=== PATIENT | female | born 1980 | race Caucasian/White ===

== ENCOUNTER 2021-05-04 07:40 | Emergency (ER) | payer OTHER, SELFPAY ==
[2021-05-04 07:42] VITALS: BP 118/61; PULSE 76; RESP 16; TEMP 36.4; O2SAT 96; BMI 22.3
--- NOTE | 2021-05-04 07:59 | ED_ITS ---
HPI - Nausea/Vomiting/Diarrhea General Chief complaint: Nausea/Vomiting/Diarrhea Stated complaint: diarrhea Time Seen by Provider: 05/04/21 07:59 Source: patient Mode of arrival: ambulatory Limitations: no limitations History of Present Illness HPI Narrative: patient with diarrhea for 3 days. Needs a work up that she is not infectious as she works at the [employer]. There has been no Cdiff at the [employer], has not been on recent abx. MD elicited complaint: nausea, vomiting and diarrhea Onset (ago): day(s) (8) Description of diarrhea: watery Associated nausea: Yes Associated abdominal pain: Yes Related Data Allergies Allergy/AdvReac Type Severity Reaction Status Date / Time No Known Allergies Allergy Verified 05/04/21 08:02 Review of Systems Constitutional: Constitutional: Reports no additional constitutional complaints Eyes: Eyes: Reports no additional eye complaints ENT: Denies dizziness Cardiovascular: Cardiovascular: Reports no additional cardiovascular complaints Respiratory: Respiratory: Reports as per HPI Gastrointestinal: Gastrointestinal: Reports nausea Genitourinary: Genitourinary: Reports no additional female genitourinary com plaints Musculoskeletal: Musculoskeletal: Reports no additional musculoskeletal complaints Integumentary/Breasts: Skin/Breast: Denies rash Neurologic: Reports system reviewed and no additional complaints, except as documented, Denies dizziness and Denies Sensory deficit (Neuro) Psychiatric: Psychiatric: Denies anxiety [facility] Past Medical History Medical History (Updated 05/04/21 @ 09:53 by Jospeh Green MD) Asthma Social History Social History Advance Directives: No Advance Directives Information Provided: No Patient : No Physical Exam Vital Signs: Vital Signs: Last Vital Signs Temp 97.5 F 05/04/21 07:42 Pulse 76 05/04/21 07:42 Resp 16 05/04/21 07:42 BP 118/61 05/04/21 07:42 Pulse Ox 96 05/04/21 07:42 Body Mass Index 22.3 Const: General: healthy appearing Nutritional Appearance: average body habitus Orientation/consciousness: oriented to person and patient oriented x3 Limitations: no limitations HENMT: Head: Yes normal to inspection Ears: external ears normal General nose exam: Normal external nose present Mouth: Normal oral and palatal mucosa present and oropharynx normal Throat: Yes posterior oropharynx normal Eyes: General: appearance normal, both eyes and all related structures Neck: Other: supple Neck: Yes normal visual inspection Chest: Chest palpation & inspection: normal inspection of the chest Resp: Auscultation: clear to auscultation bilaterally Cardio: Jugular venous distension: no JVD Rate: regular rate Rhythm: regular rhythm Heart sounds: S1 normal heart sound present and S2 normal heart sound present GI: Inspection: Yes normal to inspection Palpation (GI): Soft to palpation, nontender and No hepatosplenomegaly present Auscultation: normal bowel sounds : General: Yes no CVA tenderness Back/Spine/Pelvis: Back: no CVA tenderness Skin: General skin exam: no rashes or lesions noted Neuro: General: oriented to person and patient oriented x3 Cranial nerves: Yes CN's II-XII intact bilaterally Motor exam (neuro): 5/5 motor strength present throughout Sensory Exam: No Sensory deficit (Neuro) Extrem: General: Yes normal to inspection Psych: Appearance: grossly normal Course Course Course Narrative: patient unable to give stool sample will send with cups and lab slips and will dc home MDM - Nausea/Vomiting/Diarrhea Lab Data Result diagrams: 05/04/21 08:24 05/04/21 08:24 Labs: Lab Results 05/04/21 05/04/21 Range/Units 08:24 08:24 WBC 6.5 (4.8-10.8) X10*3/uL RBC 4.86 (4.20-5.50) X10*6/uL Hgb 15.0 (12.0-16.0) g/dl Hct 44.0 (37-47) % MCV 90.5 (80-98) fL MCH 30.9 (27.0-33.0) pg MCHC 34.1 (31.0-35.0) g/dl RDW 12.4 (11.0-16.0) % Plt Count 251 (160-400) X10*3/uL MPV 9.5 (9.4-12.3) fL Immature Gran % (Auto) 0.2 (0.0-0.4) % Neut % (Auto) 48.9 (45-73) % Lymph % (Auto) 40.3 H (20-40) % [place] % (Auto) 6.7 (2-11) % Eos % (Auto) 3.3 (0-4) % Baso % (Auto) 0.6 (0-2) % Lymph # (Auto) 2.6 (1.2-4.9) X10*3/uL [place] # (Auto) 0.4 (0.1-1.2) X10*3/uL Eos # (Auto) 0.2 (0.0-0.4) X10*3/uL Baso # (Auto) 0.0 (0.0-0.2) X10*3/uL Abs Immat Gran (auto) 0.01 (0.00-0.03) X10*3/uL Absolute Neuts (auto) 3.2 (2.0-8.3) X10*3/uL Absolute Nucleated RBC 0.000 (0.0-0.012) X10*3/uL Nucleated RBC % (auto) 0.0 (0.0-0.2) /100WBC Sodium 138 (135-145) mmol/L Potassium 4.1 (3.3-5.1) mmol/L Chloride 108 (96-108) mmol/L Carbon Dioxide 23 (22-29) mmol/L Anion Gap 11 L (12-20) BUN 12 (9-16) mg/dL Creatinine 0.78 (0.5-1.4) mg/dL Estim Creat Clear Calc 80.2 Estimated GFR > 60 Random Glucose 91 (60-115) mg/dL Calcium 9.6 (8.4-10.2) mg/dL Discharge Plan Discharge Clinical Impression: Diarrhea Qualifiers: Diarrhea type: presumed infectious Qualified Code(s): R19.7 - Diarrhea, unspeci fied Patient Disposition: Home, Self-Care Instructions: Acute Diarrhea (ED) Additional Instructions: bring fresh stool specimen to the lab Referrals: Physician,Unknown [Primary Care Provider] - 1 week
[2021-05-04 08:32] LABS: MANUAL DIFF FLAG NO
[2021-05-04 08:35] LABS: Basophils Percent Auto 0.6 % (0-2); Eosinophils Absolute Auto 0.2 X10*3/uL (0.0-0.4); Eosinophils Percent Auto 3.3 % (0-4); Imm Gran Abs Auto 0.01 X10*3/uL (0.00-0.03); Imm Gran Pct Auto 0.2 % (0.0-0.4); Lymphocytes Absolute Auto 2.6 X10*3/uL (1.2-4.9); Lymphocytes Percent Auto 40.3 % (20-40); Mean Corpuscular HGB Conc 34.1 g/dl (31.0-35.0); Mean Corpuscular Hemoglobin 30.9 pg (27.0-33.0); Mean Corpuscular Volume 90.5 fL (80-98); Mean Platelet Volume 9.5 fL (9.4-12.3); Monocytes Absolute Auto 0.4 X10*3/uL (0.1-1.2); Monocytes Percent Auto 6.7 % (2-11); Neutrophils Absolute Auto 3.2 X10*3/uL (2.0-8.3); Neutrophils Percent Auto 48.9 % (45-73); Platelet Count 251 X10*3/uL (160-400); Red Blood Count 4.86 X10*6/uL (4.20-5.50); Red Cell Distribution Width 12.4 % (11.0-16.0); White Blood Count 6.5 X10*3/uL (4.8-10.8)
[2021-05-04 08:58] LABS: Anion Gap 11 (12-20); Blood Urea Nitrogen 12 mg/dL (9-16); Calcium 9.6 mg/dL (8.4-10.2); Carbon Dioxide 23 mmol/L (22-29); Chloride 108 mmol/L (96-108); Creatinine Clr Calc Pharmacy 80.2; Estimated Glomerular Filt Rate > 60; Glucose Random 91 mg/dL (60-115); Potassium 4.1 mmol/L (3.3-5.1); Sodium 138 mmol/L (135-145)
== END 2021-05-04 10:17 | disposition home or self-care (01) ==
PROVIDERS: Emergency Provider Emergency Medicine
DX: R19.7 Diarrhea, unspecified (principal); R11.2 Nausea with vomiting, unspecified
CPT/HCPCS: 36415; 80048; 85025; 99283

== ENCOUNTER 2021-05-05 11:03 | Outpatient (REF) | payer OTHER, SELFPAY ==
[2021-05-05 11:52] LABS: CDIFF Ag Negative (Negative); CDIFF Internal ctrl Dots and bkg OK (V); CDiff Toxin Negative (Negative)
== END 2021-05-05 11:04 | disposition home or self-care (01) ==
LOC: HO.LNP 11:03
PROVIDERS: Visit Provider Emergency Medicine
DX: R19.7 Diarrhea, unspecified (principal)
CPT/HCPCS: 87045; 87046; 87177; 87209; 87324; 87449

== ENCOUNTER 2021-07-09 12:22 | Outpatient (REF) | payer OTHER, SELFPAY ==
[2021-07-10 04:26] LABS: HBsAGNum1 0.18 S/CO (0.00-0.99); Hepatitis B Core Antibody Nonreactive (Nonreactive); Hepatitis B Surface Antigen Negative (Negative)
[2021-07-10 05:36] LABS: HBS Num2 11.09 mIU/mL (0-7.99); HBS Num3 10.51 mIU/mL (0-7.99); ~Hepatitis B Surface Antibody GRAYZONE (Nonreactive)
[2021-07-11 21:31] LABS: TS Negative Control Passed; TS Panel A 0; TS Panel B 0; TS Positive Control Passed; TSpotTB Negative (SeeBelow)
== END 2021-07-09 12:23 | disposition home or self-care (01) ==
LOC: HO.HMGCLDS 12:22
PROVIDERS: PCP Internal Medicine; Visit Provider Hospitalist
DX: Z02.0 Encounter for examination for admission to educational institution (principal); Z01.84 Encounter for antibody response examination; Z11.1 Encounter for screening for respiratory tuberculosis
CPT/HCPCS: 36415; 86481; 86704; 86706; 86735; 86762; 86765; 86787; 87340

== ENCOUNTER 2023-02-20 08:33 | Outpatient (REF) | payer OTHER, SELFPAY ==
[2023-02-20 09:03] LABS: COVID-19 Test Negative (Negative); IDNOW Serial# 08D9AD1C
== END 2023-02-20 08:34 | disposition home or self-care (01) ==
LOC: HO.LAB 08:33
PROVIDERS: Visit Provider Internal Medicine
DX: Z20.822 Contact with and (suspected) exposure to COVID-19 (principal)
CPT/HCPCS: 87635

== ENCOUNTER 2023-02-21 10:19 | Outpatient (REF) | payer OTHER, SELFPAY ==
[2023-02-24 12:49] LABS: TS Negative Control Passed; TS Panel A 0; TS Panel B 0; TS Positive Control Passed; TSpotTB Negative (Negative)
== END 2023-02-21 10:20 | disposition home or self-care (01) ==
LOC: HO.HMGCLDS 10:19
PROVIDERS: PCP Internal Medicine; Visit Provider Internal Medicine
DX: Z02.0 Encounter for examination for admission to educational institution (principal)
CPT/HCPCS: 36415; 86481

== ENCOUNTER → 2023-06-23 08:20 | Outpatient (BNVA) | payer SELFPAY | PROVIDERS: PCP Internal Medicine | DX: Z04.9 Encounter for examination and observation for unspecified reason (principal) ==

== ENCOUNTER 2023-07-22 07:54 | Outpatient (AMB) | payer OTHER, SELFPAY ==
--- NOTE | 2023-07-22 08:03 | MHC.OFFVIS ---
Intake Vital Signs 07/22/23 08:07 Height 5 ft 5 in Weight 123 lb BMI 20.5 BP 93/60 Blood Pressure Location Lt brachial Position Sitting Pulse 71 Intake Visit Reasons: Colonoscopy Screening Intake Note: Patient new consult for 1st pre Colonoscopy screening. Patient cc: Constipation, between soft and hard BM, and hemorrhoids are controlled. Denies any other GI issues. 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 She is referred by Alanna Strauss of [facility] primary care. PMX Asthma Anxiety/depression Family history of colon cancer * SURGICAL HISTORY Canal [place] teeth removed * ALLERGIES Sulfa - skin red * Stealth10 LABS: No labs since 2020 TODAY'S VISIT This will be her 1st colonoscopy She has some CIC vs softer and hemorrhoids and she has use fiber in the past but these swings in her bowels do not bother her. No upper GI problems. She does not have much experience with anesthesia or sedation but tolerated it well when she had her wisdom teeth removed. Her asthma is controlled and she denies any cardiac problems. Her BP tends to run low in 90's systolic w/o sx. No ID problems. Her mother has polyps and her maternal grandmother and maternal uncle had CRC, uncle passed around age 50. [facility] Medical History (Updated 07/22/23 @ 09:26 by CLAIRE Oakes) Anxiety and depression Family history of colon cancer Mild intermittent asthma Surgical History (Updated 07/22/23 @ 09:26 by CLAIRE Oakes) H/O wisdom tooth extraction Family History Father Substance use disorder Maternal Aunt Mental health disorder Maternal Grandmother Colon cancer Social History Housing: House Patient Tobacco Use Status: Former Tobacco user Years Smoked: 13 yrs e-Cigarette/Vaping Use: Never Used service: No Current occupational status: previously employed Cognitive needs: No Hearing needs: No Vision needs: No Review of Systems Const Denies fatigue, Denies fever(s), Denies night sweats, Denies poor appetite and Denies weight loss ENT Reports Normal hearing present, Denies dental pain, Denies dysphagia, Denies hearing loss, Denies mouth pain, Denies odynophagia, Denies throat swelling, Denies tongue swelling and Reports other (Dentition adequate) Card Reports no additional complaints Resp Reports no additional complaints GI Denies abdominal pain, Denies melena, Denies bloating, Denies hematochezia, Reports constipation, Denies GI cramping, Denies dysphagia, Denies excessive flatus, Denies early satiety, Denies heartburn, Denies diarrhea, Denies nausea, Denies odynophagia, Denies vomiting and Denies hematemesis Skin/Breast Denies pruritus, Denies lesions, Denies rash and Denies jaundice Neuro Reports Normal hearing present and Denies Abnormal speech present Endo Denies fatigue Aller/Immun Denies throat swelling and Denies tongue swelling Physical Exam Vital Signs: Last Vital Signs Pulse 71 07/22/23 08:07 BP 93/60 07/22/23 08:07 BMI result Body Mass Index 20.5 Const General: cooperative, no acute distress, well developed and well groomed Nutritional Appearance: well nourished and thin Orientation/consciousness: oriented to person, oriented to place and oriented to time Limitations: No language barrier HEENT Head: Yes normocephalic and Yes atraumatic Eyes General: appearance normal, both eyes and all related structures Pupils: Equal, round and reactive pupils present Neck Neck: Yes normal visual inspection and Yes no lymphadenopathy Thyroid: Thyroid normal Resp Effort & Inspection: normal respiratory effort and able to speak in complete sentences Auscultation: clear to auscultation bilaterally Cardio Rate: regular rate Rhythm: regular rhythm Heart sounds: Normal, physiologic split S2 sound present Peripheral pulses: radial pulses present and posterior tibial pulses present GI Inspection: No distended and No Abdominal panniculus present Palpation (GI): Soft to palpation, nontender, no guarding, not rigid and No hepatosplenomegaly present Percussion: Yes normal to percussion Auscultation: normal bowel sounds Rectal Exam - Female: deferred Skin General skin exam: no rashes or lesions noted, turgor normal, skin not dry, no jaundice, No spider nevi and no striae Rashes: no rashes Nails: normal Neuro General: oriented to person, oriented to place and oriented to time Cranial nerves: Yes Equal, round and reactive pupils present and Yes Normal hearing present Speech: No Abnormal speech present Extrem General: Yes normal to inspection, No clubbing, No cyanosis and No edema Psych Appearance: grossly normal and well kempt Mental Status: mental status grossly normal Speech and movement: Normal speech and movement present Affect: normal affect Attitude: cooperative Thought process: Normal thought process present and not confabulating Thought content: Normal thought content present Insight: Good insight present (Psych) Judgement: Good judgement present (Psych) Assessment & Plan Assessment & Plan (1) Pre-op examination: Code(s): Z01.818 - Encounter for other preprocedural examination Plan: This will be her 1st colonoscopy She has some CIC vs softer and hemorrhoids and she has use fiber in the past but these swings in her bowels do not bother her. No upper GI problems. She does not have much experience with anesthesia or sedation but tolerated it well when she had her wisdom teeth removed. Her asthma is controlled and she denies any cardiac problems. Her BP tends to run low in 90's systolic w/o sx. No ID problems. Her mother has polyps and her maternal grandmother and maternal uncle had CRC, uncle passed around age 50. 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 (2) Family history of colon cancer: Code(s): Z80.0 - Family history of malignant neoplasm of digestive organs (3) Chronic asymptomatic hypotension: Code(s): I95.89 - Other hypotension Orders: Orders Comprehensive Met. Panel Today Z01.818 - Encounter for other preprocedural examination, Z80.0 - Family history of malignant neoplasm of digestive organs Complete Blood Count Auto Diff Today Z01.818 - Encounter for other preprocedural examination, Z80.0 - Family history of malignant neoplasm of digestive organs Colonoscopy - GI Use Only Today Z01.818 - Encounter for other preprocedural examination, Z80.0 - Family history of malignant neoplasm of digestive organs Medications: New sod sulf-pot chloride-mag sulf 1.479-0.188- 0.225 gram (Sutab) PO PER PKG DIR 24 tabs 0RF Coding Level of Care Code New Pt Level 3 (88778) Diagnoses Pre-op examination Z01.818 Family history of colon cancer Z80.0 Chronic asymptomatic hypotension I95.89
[2023-07-22 08:07] VITALS: BP 93/60; PULSE 71; BMI 20.5
== END 2023-07-22 08:46 | disposition home or self-care (01) ==
PROVIDERS: PCP Internal Medicine; Visit Provider Nurse Practitioner
DX: Z01.818 Encounter for other preprocedural examination (principal); Z80.0 Family history of malignant neoplasm of digestive organs; I95.89 Other hypotension
CPT/HCPCS: 99203

== ENCOUNTER → 2023-07-22 07:54 | Outpatient (BNVA) | payer SELFPAY | PROVIDERS: PCP Internal Medicine; Visit Provider Nurse Practitioner ==

== ENCOUNTER 2023-09-27 12:54 | Outpatient (REF) | payer OTHER, SELFPAY ==
[2023-09-28 08:22] LABS: HBS Num1 > 1000.00 mIU/mL (0-7.99); ~Hepatitis B Surface Antibody REACTIVE (Nonreactive)
== END 2023-09-27 12:55 | disposition home or self-care (01) ==
LOC: HO.HMGCLDS 12:54
PROVIDERS: PCP Internal Medicine; Visit Provider Internal Medicine
DX: Z01.84 Encounter for antibody response examination (principal)
CPT/HCPCS: 36415; 86706

== ENCOUNTER 2023-11-24 07:55 | Day surgery (SDC) | payer OTHER, SELFPAY ==
[2023-11-22 13:50] VITALS: BMI 20.5
[2023-11-24 08:01] VITALS: BP 104/65; PULSE 74; RESP 18; TEMP 36.6; O2SAT 98
[2023-11-24 08:04] VITALS: BMI 21.7
[2023-11-24 08:19] LABS: UPreg QC Valid YES; Urine Pregnancy NEGATIVE (NEGATIVE)
[2023-11-24] MEDS: Lactated Ringers 1,000 ML 50 ML IVCONT (08:26)
--- NOTE | 2023-11-24 08:36 | HO.ANESPROP2 ---
HPI - Anesthesia Eval Consult details Narrative: colonoscopy PMF Active Problems Active Problems: All Active Problems (Updated 07/22/23 @ 09:26 by CLAIRE Oakes) Chronic asymptomatic hypotension (Acute) Pre-op examination (Acute) Family history of colon cancer (Acute) School physical exam (Acute) Mild intermittent asthma (Acute) Past Medical History Medical History (Updated 07/22/23 @ 09:26 by CLAIRE Oakes) Family history of colon cancer Mild intermittent asthma Anxiety and depression Family History Family History Father Substance use disorder Maternal Aunt Mental health disorder Maternal Grandmother Colon cancer Family history of problems with anesthesia: No Surgical History Surgical History (Updated 07/22/23 @ 09:26 by CLAIRE Oakes) H/O wisdom tooth extraction History of Problems with Anesthesia: No Social History Social History Housing: House Patient Tobacco Use Status: Former Tobacco user Years Smoked: 13 yrs e-Cigarette/Vaping Use: Never Used Are you DNR?: No Advance Directives: No Advance Directives Information Provided: Yes Recently lost weight without trying: No Patient : No service: No Current occupational status: previously employed Cognitive needs: No Hearing needs: No Vision needs: No Meds Allergies Allergy/AdvReac Type Severity Reaction Status Date / Time sulfamethoxazole AdvReac Hives Verified 07/22/23 08:02 [From Bactrim] Active Medications: Current Medications Lactated Ringer's (Lr) 1,000 mls @ 50 mls/hr IVCONT .Q20H EDDIE Last Admin: 11/24/23 08:26 Dose: 50 mls/hr Home Medications Medication Instructions Recorded Confirmed Last Taken Type levonorgestrel 20.4 mcg/24 hrs (8 intrauterine 11/11/21 05/30/23 Unknown History yrs) 52 mg intrauterine device (Liletta) Exam Height,Weight and Vital Signs: Height 5 ft 5 in Weight 59.229 kg Last Vital Signs Temp 98 F 11/24/23 08:01 Pulse 74 11/24/23 08:01 Resp 18 11/24/23 08:01 BP 104/65 11/24/23 08:01 Pulse Ox 98 11/24/23 08:01 O2 Del Method Room Air 11/24/23 08:01 Pertinent Lab Results Pertinent Lab Results: Laboratory Tests 11/24/23 08:00 Urine Test NEGATIVE Airway Mallampati Class: II TM Dist: >3cm Neck ROM: Limited Heart: rrr Lungs: cta Assessment and Plan Assessment Anesthesia Assessment: Anesthesia Plan Discussed Final Anesthetic Review Family History of Problems with Anesthesia: No History of Problems with Anesthesia: No ASA Class: II Final Preanesthetic Review: No Changes in Pt Med Stat, Meds/Allgs Chart Reviewed, Consent Obtained/Reviewed and Anes Risks/Benef Reviewed Patient Risk: Low Procedure Risk: Low Anesthetic Plan Anesthetic Plan: MAC: Disposition: Standard PACU
--- NOTE | 2023-11-24 09:36 | MHC.SHP ---
Pre-Procedural Eval Section A Date of Service: 11/24/23 Section B Chief Complaint: Family history of malignant neoplasm of digestive Relevant Family History (Specify if Yes): Yes Relevant Social History: None Present Medications: see Short Stay Collaborative assessment Medical History: Significant History (Family history of colon cancer Mild intermittent asthma Anxiety and depression) History of Previous Operations: Relevant previous surgery/procedure and date(s) (H/O wisdom tooth extraction) Allergies: Allergies Allergy/AdvReac Type Severity Reaction Status Date / Time sulfamethoxazole AdvReac Hives Verified 07/22/23 08:02 [From Bactrim] Review of Systems Sugical H&P ROS: Negative: Constitution, Cardiovascular, Respiratory, Neurological, Psychiatric, Hem-Onc, Allergic/Immunologic, Gastrointestinal, Genitourinary, Musculoskeletal, Integumentary, Endocrine and Eyes/Ears/Nose/Throat Exam Surgical H&P Exam: Normal: HEENT, Normal: Heart, Normal: Lungs, Normal: Extremities, Normal: Abdomen, Normal: Skin and Normal: Neurological Plan Diagnosis/Plan: Unchanged I have reviewed the history and physical and performed a pertinent physical examination on my patient. No changes have occurred unless specified. Time Spent With Patient Time: Total time managing care of this patient today ____ minutes.
--- NOTE | 2023-11-24 10:09 | W.PM.OPN ---
Operative Note Operative Note Date of Service: 11/24/23 Narrative: Operative Information Procedure Description: Colonoscopy Indication: screening, FH of CRC Anesthesia: MAC COLONOSCOPY Instrument: Olympus variable stiffness pediatric scope 190L Colonoscopy Monitoring: Vital signs and clinical assessment, continuous EKG monitoring, Pulse oximetry, Carbon Dioxide monitoring and blood pressure monitoring were done throughout the procedure. Colon withdrawal time was 12 minutes. Procedure: The patient was placed in the left lateral decubitis position and pre-procedure medications were administered. After a digital rectal examination of the ano-rectum, the video colonoscope was inserted into the rectum and advanced through the colon to the cecum/TI. The colonoscope was slowly withdrawn in a retrograde panoramic fashion and the colon mucosa was carefully examined including a retroflexed view of the rectum. Findings and interventions are described below. Procedure Difficulty: easy Findings: Terminal Ileum-normal Cecum:normal Ascending Colon: normal Transverse Colon -normal Descending Colon: 6-8 mm sessile polyp removed with cold snare Sigmoid Colon: normal Rectum: Retroflexion with small internal hemorrhoids, grade I - 10-11 mm sessile polyp removed with cold snare Anorectum - normal Colon preparation: [place] Bowel Preparation Scale Right colon; 2 Transverse colon: 1-2 Left colon; 1- (0 = Unprepared colon segment with mucosa not seen due to solid stool that cannot be cleared. 1 = Portion of mucosa of the colon segment seen, but other areas of the colon segment not well seen due to staining, residual stool and/or opaque liquid. 2 = Minor amount of residual staining, small fragments of stool and/or opaque liquid, but mucosa of colon segment seen well. 3 = Entire mucosa of colon segment seen well with no residual staining, small fragments of stool or opaque liquid) Impression and Post Procedure Diagnosis: polyps internal hemorrhoids Plan: High fiber diet leaflet Avoid straining at stool, epsom salts and sitz bath, anusol supps or cream Repeat Colonoscopy in 6-12 months due to prep or earlier if clinically indicated--maybe 2 d of clears next time Above findings were reviewed with the patient and relevant handouts were provided if indicated.
[2023-11-24 10:43] VITALS: BP 84/46; PULSE 63; RESP 16; TEMP 36.6; O2SAT 98
[2023-11-24 10:58] VITALS: BP 96/51; PULSE 65; RESP 16; O2SAT 99
[2023-11-24 11:05] VITALS: BP 94/52; PULSE 66; RESP 16; O2SAT 99
[2023-11-24 11:13] VITALS: BP 97/51; PULSE 58; RESP 16; O2SAT 99
[2023-11-24 11:25] VITALS: BP 98/53; PULSE 61; RESP 16; TEMP 36.6; O2SAT 99
== END 2023-11-24 11:37 | disposition home or self-care (01) ==
PROVIDERS: Anesthesiology; PCP Internal Medicine; Visit Provider Internal Medicine Gastroenterology
PROC: 0DJD8ZZ Inspection of Lower Intestinal Tract, Via Natural or Artificial Opening Endoscopic (ICD-10-PCS; CPT 45378; principal; 2023-11-24 11:20)
DX: Z12.11 Encounter for screening for malignant neoplasm of colon (principal); D12.4 Benign neoplasm of descending colon; D12.8 Benign neoplasm of rectum; K57.30 Diverticulosis of large intestine without perforation or abscess without bleeding; K64.0 First degree hemorrhoids; Z80.0 Family history of malignant neoplasm of digestive organs; I95.89 Other hypotension; J45.20 Mild intermittent asthma, uncomplicated; Z87.891 Personal history of nicotine dependence
CPT/HCPCS: 45385; 81025; 88305; J2704

== ENCOUNTER → 2023-11-24 07:55 | Outpatient (BNV) | payer OTHER, SELFPAY | PROVIDERS: PCP Internal Medicine; Visit Provider Internal Medicine Gastroenterology | DX: Z12.11 Encounter for screening for malignant neoplasm of colon (principal); K63.5 Polyp of colon; K64.8 Other hemorrhoids; Z80.0 Family history of malignant neoplasm of digestive organs | CPT/HCPCS: 45385 ==

== ENCOUNTER 2024-01-08 10:39 | Emergency (ER) | payer OTHER, SELFPAY ==
--- NOTE | ~2024-01-08 | CT_ITS ---
EXAMINATION: CT HEAD WITHOUT CONTRAST CT CERVICAL SPINE WITHOUT CONTRAST CLINICAL INFORMATION: Head injury and pain. COMPARISON: None TECHNIQUE: CT of the head and cervical spine were performed without intravenous contrast. Multiplanar reformats were rendered and reviewed. This CT examination was performed using dose optimization techniques as appropriate, variously including the following: *Automated exposure control *Adjustment of mA and/or kV according to patient size (this includes techniques or standardized protocols for targeted exams where dose is matched to indication/reason for exam; i.e. extremities or head) *Use of iterative reconstruction technique DLP: 623 mGy-cm. FINDINGS: CT head: There is no intracranial hemorrhage, extra-axial collection, mass effect, or territorial infarction. The ventricles are normal in size without hydrocephalus. The calvarium is intact without fracture. The visualized paranasal sinuses and mastoid air cells are clear. CT cervical spine: The cervical vertebral bodies demonstrate normal heights and alignment. No fracture is seen. There is moderate to severe disc height loss at C6-C7. There is mild disc height loss at C5-C6. Anterior endplate osteophytes and disc osteophyte complexes are seen at C5-C6 and C6-C7. Facet joints are essentially normal. Uncovertebral hypertrophy and disc osteophyte complex results in moderate left neural foraminal stenosis at C5-C6 and moderate to severe narrowing bilaterally at C6-C7. There is union of the anterior and posterior arch of C1. The lung apices are clear. The cervical soft tissues are within normal limits. CT/CT cervical spine wo IV con IMPRESSION: CT HEAD: No acute intracranial abnormality. CT CERVICAL SPINE: No cervical spine fracture or traumatic malalignment. Multilevel degenerative spondylotic changes.
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
[2024-01-08 11:01] VITALS: BP 104/59; PULSE 71; RESP 18; TEMP 37.1; O2SAT 98; BMI 20.6
[2024-01-08] MEDS: Cyclobenzaprine HCl 5 MG TABLET PO (11:14)
== END 2024-01-08 11:51 | disposition home or self-care (01) ==
PROVIDERS: Emergency Provider Emergency Medicine Emergency Medical Services; PCP Internal Medicine
DX: S10.91XA Abrasion of unspecified part of neck, initial encounter (principal); M54.2 Cervicalgia; R51.9 Headache, unspecified; Y04.2XXA Assault by strike against or bumped into by another person, initial encounter; Y93.9 Activity, unspecified; Y92.9 Unspecified place or not applicable; Y99.0 Civilian activity done for income or pay
CPT/HCPCS: 70450; 72125; 99284

== ENCOUNTER 2024-04-26 09:01 | Outpatient (AMB) | payer OTHER, SELFPAY ==
[2024-04-26 09:04] VITALS: BP 90/58; PULSE 76; O2SAT 96; BMI 21.1
--- NOTE | 2024-04-26 09:04 | MHC.PC.OV ---
Vital Signs 04/26/24 09:04 Height 5 ft 4 in Weight 123 lb BMI 21.1 BP 90/58 L Blood Pressure Location Rt brachial Position Sitting Pulse 76 Pulse Source Pulse Oximeter Pulse Oximetry (%) 96 Oxygen Delivery Method Room Air Intake Visit Reasons: asthma Intake Note: Pt is here today c/o asthma acting up, coughing up phelgm x2wks Allergies sulfamethoxazole [From Bactrim] Adverse Reaction (Verified 04/26/24 09:47) Hives Medication List - Last Reconciled 04/26/24 by Aalnna Strauss MD albuterol sulfate 90 mcg/actuation 2 puffs inhalation Q6H PRN fluticasone propion-salmeterol 500-50 mcg/dose 1 inh inhalation Q12H montelukast 10 mg PO DAILY Tobacco use date assessed: 04/26/24 Dental Screening Dental Screen Date: 05/30/23 HPI asthma HPI Details 44-year-old lady with mild intermittent asthma, has been out of her inhalers for the last 2 weeks, presents today complaining of persistent cough with wheezing accompanied by chest congestion and postnasal drainage which has been present now for the last 10 days denies any accompanying fever, does get a little bit short of breath on moderate exertion. [facility] Medical History (Updated 04/26/24 @ 09:59 by Alanna Strauss MD) Asthmatic bronchitis Family history of colon cancer Mild intermittent asthma Anxiety and depression Surgical History H/O wisdom tooth extraction Family History Father Substance use disorder Maternal Aunt Mental health disorder Maternal Grandmother Colon cancer Social History Housing: House Patient Tobacco Use Status: Former Tobacco user Years Smoked: 13 yrs e-Cigarette/Vaping Use: Never Used service: No Current occupational status: previously employed Cognitive needs: No Hearing needs: No Vision needs: No Questionnaire Thrive Questionnaire Date Thrive assessed: 05/30/23 JAMES-7 AMB Questionnaire JAMES-7 Date JAMES - 7 assessed: 05/30/23 Source: Developed by Drs. Harley Montanez, ShannonJe Gould and colleagues, with an educational markie from [employer]. Review of Systems Const Reports as per HPI ENT Reports no additional complaints Card Reports as per HPI Resp Reports as per HPI and Reports no additional complaints GI Reports no additional complaints Physical exam (Primary Care) Vital Signs: Last Vital Signs Pulse 76 04/26/24 09:04 BP 90/58 L 04/26/24 09:04 Pulse Ox 96 04/26/24 09:04 Oxygen Delivery Method Room Air 04/26/24 09:04 BMI result Body Mass Index 21.1 Tobacco/Smoking Status: Tobacco use Status Tobacco use date assessed 04/26/24 04/26/24 09:10 Patient Tobacco Use Status Former Tobacco user 04/26/24 09:10 e-Cigarette/Vaping Use Never Used 04/26/24 09:10 Thrive Assessment: Date of Thrive Assessment Date Thrive assessed 05/30/23 04/26/24 09:10 Const Other: Alert oriented x3, no acute distress noted ambulatory normal HENMT Ears: external ears normal, TM's normal bilaterally and EAC's normal General nose exam: Normal external nose present and No nasal discharge present Face and sinus: Yes sinuses nontender and Yes face symmetric Mouth: Normal oral and palatal mucosa present, oropharynx normal and moist mucous membranes Neck Other: Supple with no lymphadenopathy thyroid gland nonpalpable Resp Auscultation: wheezes scattered wheezes Assessment and Plan Assessment & Plan (1) Screening examination for pulmonary tuberculosis: Code(s): Z11.1 - Encounter for screening for respiratory tuberculosis Plan: T spot ordered, needs for school (2) Mild intermittent asthma: Code(s): J45.20 - Mild intermittent asthma, uncomplicated Qualifiers: Asthma complication type: with acute exacerbation Qualified Code(s): J45.21 - Mild intermittent asthma with (acute) exacerbation Plan: Prescription refill sent for albuterol inhaler, montelukast and fluticasone propionate-salmeterol 500-50 mcg/dose up-to-date with her Prevnar 20. (3) Asthmatic bronchitis: Code(s): J45.909 - Unspecified asthma, uncomplicated Qualifiers: Asthma severity: mild Asthma complication type: with acute exacerbation Asthma persistence: intermittent Qualified Code(s): J45.21 - Mild intermittent asthma with (acute) exacerbation Plan: Prescription sent for Augmentin 875-1251 tablet every 12 hours for 10 days. Orders: Orders T Spot TB Today Z11.1 - Encounter for screening for respiratory tuberculosis Medications: New amoxicillin-pot clavulanate 875-125 mg 1 tab PO Q12H 20 tabs 0RF Refilled albuterol sulfate 90 mcg/actuation 2 puffs inhalation Q6H PRN 8.5 grams 3RF shortness of breath or wheezing J45.20 - Mild intermittent asthma, uncomplicated montelukast 10 mg PO DAILY 90 tabs 3RF J45.20 - Mild intermittent asthma, uncomplicated fluticasone propion-salmeterol 500-50 mcg/dose 1 inh inhalation Q12H 60 ea 6RF J45.20 - Mild intermittent asthma, uncomplicated Coding Level of Care Code Est Pt Level 4 (80653) Complex EM visit Add On G2211 Diagnoses Screening examination for pulmonary tuberculosis Z11.1 Mild intermittent asthma with acute exacerbation J45.21 Asthma complication type: with acute exacerbation Mild intermittent asthmatic bronchitis with acute exacerbation J45.21 Asthma severity: mild Asthma complication type: with acute exacerbation Asthma persistence: intermittent
== END 2024-04-26 10:43 | disposition home or self-care (01) ==
PROVIDERS: PCP Internal Medicine; Visit Provider Internal Medicine
DX: Z11.1 Encounter for screening for respiratory tuberculosis (principal); J45.21 Mild intermittent asthma with (acute) exacerbation
CPT/HCPCS: 99214; G2211

== ENCOUNTER 2024-05-29 15:15 | Outpatient (REF) | payer OTHER, SELFPAY ==
[2024-05-29 17:05] LABS: Alanine Aminotransferase 17 U/L (0-31); Anion Gap 12 (12-20); Aspartate Amino Transferase 14 U/L (5-31); Blood Urea Nitrogen 13 mg/dL (9-16); Calcium 9.8 mg/dL (8.4-10.2); Carbon Dioxide 26 mmol/L (22-29); Chloride 105 mmol/L (96-108); Cholesterol 172 mg/dL (<200); Estimated Glomerular Filt Rate > 60; Glucose Fasting 124 mg/dL (60-99); HDL Cholesterol 46 mg/dL (>40); LDL Cholesterol Calculated 78 mg/dL (<100); Potassium 4.2 mmol/L (3.3-5.1); Sodium 139 mmol/L (135-145); Triglycerides 242 mg/dL (<150)
== END 2024-05-29 15:16 | disposition home or self-care (01) ==
LOC: HO.HMGCLDS 15:15
PROVIDERS: PCP Internal Medicine; Visit Provider Internal Medicine
DX: J45.21 Mild intermittent asthma with (acute) exacerbation (principal); Z13.220 Encounter for screening for lipoid disorders; Z13.1 Encounter for screening for diabetes mellitus
CPT/HCPCS: 36415; 80048; 80061; 82306; 84450; 84460

== ENCOUNTER 2024-06-04 10:53 | Outpatient (AMB) | payer OTHER, SELFPAY ==
[2024-06-04 10:56] VITALS: BP 94/60; PULSE 79; O2SAT 96; BMI 20.6
--- NOTE | 2024-06-04 10:56 | A.OFFPC_ITS ---
Vital Signs 06/04/24 10:56 Height 5 ft 4 in Weight 120 lb BMI 20.6 BP 94/60 Blood Pressure Location Rt brachial Position Sitting Pulse 79 Pulse Source Pulse Oximeter Pulse Oximetry (%) 96 Oxygen Delivery Method Room Air Intake Visit Reasons: PE Intake Note: Pt is here today for her PE/FMLA paperwork Allergies sulfamethoxazole [From Bactrim] Adverse Reaction (Verified 06/04/24 11:19) Hives Medication List - Last Reconciled 06/04/24 by Alanna Strauss MD albuterol sulfate 90 mcg/actuation 2 puffs inhalation Q6H PRN fluticasone propion-salmeterol 500-50 mcg/dose 1 inh inhalation Q12H montelukast 10 mg PO DAILY Tobacco use date assessed: 06/04/24 Dental Screening Dental Screen Date: 06/04/24 Did you have a dental visit in the last 12 months?: Yes Did you have a dental problem in the last 6 months where you did not have access to dental care?: No Was dental information given to patient?: Patient has dentist HPI PE HPI Details 44-year-old lady here today requesting t o have her FMLA application completed. Patient has been having a lot of anxiety and low mood for the last several weeks, has had several family losses and a P falls in the last few months. Requesting to be on leave from May 28 to2023 for mental health reasons. Currently being seen by therapist. Will start her today on sertraline 50 mg per tablet, initially start taking half a tablet for the 1st week and then increase dose to 50 mg daily as needed. [facility] Medical History (Updated 06/11/24 @ 03:44 by Alanna Strauss MD) Anxiety and depression Asthmatic bronchitis Family history of colon cancer Mild intermittent asthma Surgical History H/O wisdom tooth extraction Family History Father Substance use disorder Maternal Aunt Mental health disorder Maternal Grandmother Colon cancer Social History Housing: House Patient Tobacco Use Status: Former Tobacco user Years Smoked: 13 yrs e-Cigarette/Vaping Use: Never Used service: No Current occupational status: previously employed Cognitive needs: No Hearing needs: No Vision needs: No Questionnaire PHQ-9 Over the last 2 weeks, how often have you been bothered by any of the following problems? 1. Little interest or pleasure in doing things: several days 2. Feeling down, depressed, or hopeless: several days 3. Trouble falling or staying asleep, or sleeping too much: not at all 4. Feeling tired or having little energy: several days 5. Poor appetite or overeating: several days 6. Feeling bad about yourself - or that you are a failure or have let yourself or your family down: several days 7. Trouble concentrating on things, such as reading the newspaper or watching television: several days 8. Moving or speaking so slowly that other people could have noticed. Or the opposite - being so fidgety or restless that you have been moving around a lot more than usual: not at all 9. Thoughts that you would be better off or of hurting yourself in some way: not at all Total score: 6 Depression Screening Interpretation: Positive Depression Screening Done: Yes 69434 - PHQ-9 Billing: Yes Source: Developed by Drs. Harley Montanez, Shannon Yancey, Je Pierre and colleagues, with an educational markie from [employer]. Thrive Questionnaire Date Thrive assessed: 06/04/24 I am a: Patient What is your living situation today?: I have a steady place to live Within the past 12 months, did the food you bought not last and you didn't have the money to get more?: Never true Within the past 12 months, did you worry whether your food would run out before you got money to buy more?: Never true Do you have trouble paying for medicines?: No Do you have trouble getting transportation to medical appointments?: No Do you have trouble paying your heating and electricity bill?: No Do you have trouble taking care of your child, family member or friend?: No Do you have trouble with day-to-day activities such as bathing, preparing meals, shopping, managing finances, etc.?: No Are you currently unemployed and looking for a job?: No Are you interested in more education?: No THRIVE Score: 0 AUDIT C Alcohol Use Questionnaire (AUDIT-C) 1. How often do you have a drink containing alcohol?: Monthly or less 2. How many drinks containing alcohol do you have on a typical day when you are drinking?: 1 or 2 3. How often do you have six or more drinks on one occasion?: Never Total Score: 1 JAMES-7 AMB Questionnaire JAMES-7 Date JAMES - 7 assessed: 06/04/24 Feeling nervous, anxious, or on edge: 3 = Nearly every day Not being able to stop or control worryin = Nearly every day Worrying too much about different things: 1 = Several days Trouble relaxin = More than half the days Being so restless that it is hard to sit still: 2 = More than half the days Becoming easily annoyed or irritable: 1 = Several days Feeling afraid as if something awful might happen: 1 = Several days Total JAMES-7 score (0-4 normal; 5-9 mild; 10-14 moderate; 15-21 severe): 13 Source: Developed by Drs. Harley Montanez, Shannon Yancey, Je Pierre and colleagues, with an educational markie from [employer]. JAMES-7 Assessment Billing JAMES-7 Assessment Tool: JAMES-7 Assessment 60975 Review of Systems Const Reports as per HPI, Reports difficulty sleeping, Reports fatigue and Reports lethargy ENT Reports no additional complaints Card Denies chest pain, Denies rapid heart rate and Denies dyspnea Resp Denies cough and Denies dyspnea GI Denies abdominal pain, Denies change in bowel habits, Denies change in stool character and Denies heartburn Musc Reports no additional complaints Psych Reports as per HPI Endo Reports fatigue Physical exam (Primary Care) Vital Signs: Last Vital Signs Pulse 79 06/04/24 10:56 BP 94/60 06/04/24 10:56 Pulse Ox 96 06/04/24 10:56 Oxygen Delivery Method Room Air 06/04/24 10:56 BMI result Body Mass Index 20.6 Tobacco/Smoking Status: Tobacco use Status Tobacco use date assessed 06/04/24 06/04/24 11:05 Patient Tobacco Use Status Former Tobacco user 06/04/24 10:56 e-Cigarette/Vaping Use Never Used 06/04/24 10:56 PHQ-9: PHQ-9 Score PHQ-9: Total score 6 06/04/24 17:21 Depression Screening Interpretation: Positive Thrive Assessment: Date of Thrive Assessment Date Thrive assessed 06/04/24 06/04/24 11:25 Const Other: Alert oriented x3, no acute distress noted ambulatory normal Orientation/consciousness: patient oriented x3 HENMT Ears: external ears normal General nose exam: Normal external nose present Face and sinus: Yes face symmetric Mouth: Normal oral and palatal mucosa present, oropharynx normal and moist mucous membranes Neck Other: Supple with no lymphadenopathy thyroid gland nonpalpable Resp Auscultation: clear to auscultation bilaterally Cardio Other: S1-S2 present regular rate and rhythm GI Palpation (GI): Soft to palpation, nontender, no guarding and no masses Auscultation: normal bowel sounds Neuro General: patient oriented x3, tone normal, moves all extremities, Normal light touch and pain sensation and no focal motor deficits Psych Appearance: grossly normal and well kempt Mental Status: mental status grossly normal Speech and movement: Normal speech and movement present Affect: Sad affect present Thought process: Normal thought process present Thought content: Normal thought content present Assessment and Plan Assessment & Plan (1) Anxiety and depression: Code(s): F41.9 - Anxiety disorder, unspecified; F32.A - Depression, unspecified Plan: Started on sertraline 50 mg per tablet, initially to take half a tablet or 25 mg dose once a day for the 1st week and may increase dose to 50 mg on 2nd week as needed for treatment of her depression anxiety. FMLA form application completed today, and given back to patient. Will see her for follow-up in 4 weeks after starting sertraline Medications: New sertraline 50 mg PO DAILY 30 tabs 1RF Coding Level of Care Code Est Pt Level 4 (66112) Diagnoses Anxiety and depression F41.9; F32.A Additional Codes JAMES-7 Assessment Billing - JAMES-7 Assessment Tool: JAMES-7 Assessment 19811 ([id number])
== END 2024-06-04 11:56 | disposition home or self-care (01) ==
PROVIDERS: PCP Internal Medicine; Visit Provider Internal Medicine
DX: F41.9 Anxiety disorder, unspecified (principal); F32.A Depression, unspecified
CPT/HCPCS: 96127; 99214

== ENCOUNTER 2024-06-22 08:22 | Outpatient (AMB) | payer OTHER, SELFPAY ==
--- NOTE | 2024-06-22 08:26 | MHC.PC.OV ---
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 Allergies sulfamethoxazole [From Bactrim] Adverse Reaction (Verified 06/22/24 08:33) Hives Medication List - Last Reconciled 06/22/24 by Alanna Strauss MD albuterol sulfate 90 mcg/actuation 2 puffs inhalation Q6H PRN fluticasone propion-salmeterol 500-50 mcg/dose 1 inh inhalation Q12H montelukast 10 mg PO DAILY sertraline 50 mg PO DAILY Tobacco use date assessed: 06/04/24 Dental Screening Dental Screen Date: 06/04/24 HPI follow up anxiety/depression HPI Details Follow-up on her anxiety depression, currently on sertraline 50 mg once a day, started taking approximately 2 weeks ago , and states that medicine has been helping a little bit but still getting frequent episodes of anxiety and still having difficulty sleeping at night. Requesting to extend her FMLA leave until 08/19/2024. Currently seeing a therapist at work. [facility] Medical History Anxiety and depression Asthmatic bronchitis Family history of colon cancer Mild intermittent asthma Surgical History H/O wisdom tooth extraction Family History Father Substance use disorder Maternal Aunt Mental health disorder Maternal Grandmother Colon cancer Social History Housing: House Patient Tobacco Use Status: Former Tobacco user Years Smoked: 13 yrs e-Cigarette/Vaping Use: Never Used service: No Current occupational status: previously employed Cognitive needs: No Hearing needs: No Vision needs: No Questionnaire PHQ-9 Over the last 2 weeks, how often have you been bothered by any of the following problems? 1. Little interest or pleasure in doing things: nearly every day 2. Feeling down, depressed, or hopeless: nearly every day 3. Trouble falling or staying asleep, or sleeping too much: more than half the days 4. Feeling tired or having little energy: several days 5. Poor appetite or overeating: nearly every day 6. Feeling bad about yourself - or that you are a failure or have let yourself or your family down: several days 7. Trouble concentrating on things, such as reading the newspaper or watching television: more than half the days 8. Moving or speaking so slowly that other people could have noticed. Or the opposite - being so fidgety or restless that you have been moving around a lot more than usual: nearly every day 9. Thoughts that you would be better off or of hurting yourself in some way: not at all Total score: 18 Depression Screening Interpretation: Positive (Will increase sertraline dose to 100 mg at in the morning and started on trazodone 50 mg at bedtime) Depression Screening Follow-up: Existing condition, In treatment and Community Mental Health Worker F/U Depression Screening Done: Yes 64315 - PHQ-9 Billing: Yes Source: Developed by Drs. Harley Montanez, Shannon Yancey, Je Pierre and colleagues, with an educational markie from [employer]. Thrive Questionnaire Date Thrive assessed: 06/04/24 JAMES-7 AMB Questionnaire JAMES-7 Date JAMES - 7 assessed: 06/22/24 Feeling nervous, anxious, or on edge: 3 = Nearly every day Not being able to stop or control worryin = Nearly every day Worrying too much about different things: 3 = Nearly every day Trouble relaxin = Nearly every day Being so restless that it is hard to sit still: 3 = Nearly every day Becoming easily annoyed or irritable: 2 = More than half the days Feeling afraid as if something awful might happen: 1 = Several days Total JAMES-7 score (0-4 normal; 5-9 mild; 10-14 moderate; 15-21 severe): 18 Source: Developed by Drs. Harley Montanez, Shannon Yancey, Je Pierre and colleagues, with an educational markie from [employer]. JAMES-7 Assessment Billing JAMES-7 Assessment Tool: JAMES-7 Assessment 73074 Review of Systems Const Reports as per HPI and Reports fatigue Eyes Denies change in vision ENT Reports no additional complaints Card Denies chest pain, Denies rapid heart rate and Denies dyspnea Resp Denies cough and Denies dyspnea GI Denies abdominal pain, Denies change in bowel habits, Denies change in stool character and Denies heartburn Musc Reports no additional complaints Neuro Reports no additional complaints Psych Reports as per HPI, Denies panic attacks, Denies homicidal ideation and Denies suicidal ideation Endo Reports fatigue Physical exam (Primary Care) Tobacco/Smoking Status: Tobacco use Status Tobacco use date assessed 06/04/24 06/22/24 08:29 Patient Tobacco Use Status Former Tobacco user 06/22/24 08:29 e-Cigarette/Vaping Use Never Used 06/22/24 08:29 PHQ-9: PHQ-9 Score PHQ-9: Total score 18 06/22/24 08:29 Depression Screening Interpretation: Positive (Will increase sertraline dose to 100 mg at in the morning and started on trazodone 50 mg at bedtime) Depression Screening Follow-up: Existing condition, In treatment and Community Mental Health Worker F/U Thrive Assessment: Date of Thrive Assessment Date Thrive assessed 06/04/24 06/22/24 08:29 Telehealth Telehealth Telehealth Platform: Telephone Location of provider rendering services: practice address Location of patient: address on file Patient Identification confirmed using: Name, : Yes Telehealth method: voice only Patient verbally consented to treatment: Yes Patient verbally consented to billing insurance company: Yes Patient informed of any privacy concerns related to visit: Yes Assessment and Plan Assessment & Plan (1) Anxiety and depression: Code(s): F41.9 - Anxiety disorder, unspecified; F32.A - Depression, unspecified Plan: Will increase her sertraline dose to 100 mg per tablet taken once a day in a.m., and will start her on trazodone 50 mg per tablet. Advised to initially take half a tablet or 25 mg at bedtime as needed for insomnia, and may increase dose to a whole tablet or 50 mg as needed. Continue with counseling, will see her back for a telehealth visit again 1 month Medications: New trazodone 50 mg PO BEDTIME PRN 30 tabs 0RF sleep Changed From sertraline 50 mg PO DAILY 30 tabs 1RF F32.A - Depression, unspecified, F41.9 - Anxiety disorder, unspecified To sertraline 100 mg PO DAILY 30 tabs 1RF F32.A - Depression, unspecified, F41.9 - Anxiety disorder, unspecified Coding Level of Care Code Tele Est Pt Level 4 (40517) Diagnoses Anxiety and depression F41.9; F32.A Additional Codes JAMES-7 Assessment Billing - JAMES-7 Assessment Tool: JAMES-7 Assessment 54393 ([id number])
== END 2024-06-22 17:41 | disposition home or self-care (01) ==
LOC: HO.HMGC 08:22
PROVIDERS: PCP Internal Medicine; Visit Provider Internal Medicine
DX: F41.9 Anxiety disorder, unspecified (principal); F32.A Depression, unspecified
CPT/HCPCS: 96127; 99214

== ENCOUNTER 2024-07-03 08:07 | Outpatient (AMB) | payer OTHER, SELFPAY ==
[2024-07-03 08:08] VITALS: BP 112/68; PULSE 69; TEMP 36.2; O2SAT 98; BMI 20.4
--- NOTE | 2024-07-03 08:08 | AM.OFFWIN_ITS ---
Intake Vital Signs 07/03/24 08:08 Height 5 ft 4 in Weight 119 lb BMI 20.4 BP 112/68 Blood Pressure Location Lt brachial Position Sitting Pulse 69 Pulse Source Pulse Oximeter Temp 97.1 F Temp Source Temporal Artery Scan Pulse Oximetry (%) 98 Oxygen Delivery Method Room Air Intake Visit Reasons: Diarrhea Intake Note: pt c/o diarrhea. Ongoing for 2 weeks Patient Tobacco Use Status: Former Tobacco user Allergies sulfamethoxazole [From Bactrim] Adverse Reaction (Verified 07/03/24 08:08) Hives Do you need a note to return to daycare/school/sports/work: No HPI HPI Comments History of Present Illness Details 44 y/o female patient who presents to [facility] walk in clinic with c/o Diarrhea x 2 weeks. Reports going to the bathroom every hour. Denies fevers, chills, nausea or vomiting. She does report abdominal cramping with diarrhea. Denies eating any new foods. Denies blood in stools. She was seen [facility] Medical History (Updated 07/03/24 @ 08:38 by Serena Cazares NP) Diarrhea Anxiety and depression Asthmatic bronchitis Family history of colon cancer Mild intermittent asthma Surgical History H/O wisdom tooth extraction Family History Father Substance use disorder Maternal Aunt Mental health disorder Maternal Grandmother Colon cancer Social History Housing: House Patient Tobacco Use Status: Former Tobacco user Years Smoked: 13 yrs e-Cigarette/Vaping Use: Never Used service: No Current occupational status: previously employed Cognitive needs: No Hearing needs: No Vision needs: No Review of Systems Const All systems reviewed & are unremarkable except as noted in HPI and below Physical Exam Vital Signs: Last Vital Signs Temp 97.1 F 07/03/24 08:08 Pulse 69 07/03/24 08:08 BP 112/68 07/03/24 08:08 Pulse Ox 98 07/03/24 08:08 Oxygen Delivery Method Room Air 07/03/24 08:08 BMI result Body Mass Index 20.4 Const General: comfortable and no acute distress Nutritional Appearance: thin Orientation/consciousness: patient oriented x3 GI Inspection: Yes normal to inspection Palpation (GI): Soft to palpation, not firm, Tenderness to palpation present (GI) periumbilically, no guarding and No hepatosplenomegaly present Auscultation: Hypoactive bowel sounds present Rectal Exam - Female: deferred Skin General skin exam: no rashes or lesions noted Neuro General: patient oriented x3, gait normal and moves all extremities Psych Speech and movement: Normal speech and movement present Assessment & Plan Assessment & Plan (1) Diarrhea: Code(s): R19.7 - Diarrhea, unspecified Qualifiers: Diarrhea type: unspecified type Qualified Code(s): R19.7 - Diarrhea, unspecified Plan: Ordered stool culture BLAND diet Hydrate well to avoid De-hydration Avoid spicy and oily foods. RTC if symptoms worse. Orders: Orders GI Panel Today R19.7 - Diarrhea, unspecified H pylori Ag Stool Today R19.7 - Diarrhea, unspecified Medications: New metoclopramide HCl (Reglan) 10 mg PO Q6H PRN 30 tabs 0RF nausea and vomiting R19.7 - Diarrhea, unspecified loperamide (Imodium A-D) administer after each loose stool until symptoms controlled; do not exceed 8 mg per 24 hrs 2 mg PO Q4H PRN 30 caps 0RF loose stool R19.7 - Diarrhea, unspecified ondansetron 8 mg PO Q8H 30 tabs 0RF R19.7 - Diarrhea, unspecified Coding Level of Care Code Est Pt Level 3 (58082) Diagnoses Diarrhea, unspecified type R19.7 Diarrhea type: unspecified type Time Spent (min) 15
== END 2024-07-03 08:52 | disposition home or self-care (01) ==
PROVIDERS: PCP Internal Medicine; Visit Provider Nurse Practitioner Family
DX: R19.7 Diarrhea, unspecified (principal)
CPT/HCPCS: 99213

== ENCOUNTER 2024-07-04 08:49 | Outpatient (REF) | payer OTHER, SELFPAY ==
[2024-07-04 12:06] LABS: Adenovirus F 40/41 Not Detected (Not Detect.); Astrovirus Not Detected (Not Detect.); Campylobacter Not Detected (Not Detect.); Cryptosporidium Not Detected (Not Detect.); Cyclospora cayetanensis Not Detected (Not Detect.); E. coli EAEC Not Detected (Not Detect.); E. coli EPEC Not Detected (Not Detect.); E. coli ETEC Not Detected (Not Detect.); E. coli STEC Not Detected (Not Detect.); Entamoeba histolytica Not Detected (Not Detect.); Giardia lamblia Not Detected (Not Detect.); Norovirus GI/GII Not Detected (Not Detect.); Plesiomonas shigelloides Not Detected (Not Detect.); Rotavirus A Not Detected (Not Detect.); Salmonella Not Detected (Not Detect.); Sapovirus Not Detected (Not Detect.); Shigella sp./EIEC Not Detected (Not Detect.); Vibrio Not Detected (Not Detect.); Vibrio Cholerae Not Detected (Not Detect.); Yersinia enterocolitica Not Detected (Not Detect.)
[2024-07-07 16:29] LABS: TS Negative Control Passed; TS Panel A 3; TS Panel B 0; TS Positive Control Passed; TSpotTB Negative (Negative)
== END 2024-07-04 08:50 | disposition home or self-care (01) ==
LOC: HO.HMGCLDS 08:49
PROVIDERS: Nurse Practitioner Family; PCP Internal Medicine; Visit Provider Internal Medicine
DX: Z11.1 Encounter for screening for respiratory tuberculosis (principal); R19.7 Diarrhea, unspecified
CPT/HCPCS: 36415; 86481; 87338; 87507

== ENCOUNTER 2024-09-12 13:14 | Outpatient (AMB) | payer OTHER, SELFPAY ==
--- NOTE | 2024-09-12 13:22 | A.OFFPC_ITS ---
Vital Signs 09/12/24 13:25 Height 5 ft 4 in Weight 120 lb 2 oz BMI 20.6 BP 126/60 Blood Pressure Location Rt brachial Position Sitting Pulse 80 Pulse Source Pulse Oximeter Pulse Oximetry (%) 97 Oxygen Delivery Method Room Air Intake Visit Reasons: disability paperwork visit, Lisa Li Intake Note: Patient is here to follow up on Disability paperwork. Flu already done. 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: Not Required per policy Accompanied by: Self / Same As Patient Allergies sulfamethoxazole [From Bactrim] Adverse Reaction (Verified 09/12/24 13:49) Hives Medication List - Last Reconciled 09/12/24 by Alanna Strauss MD albuterol sulfate 90 mcg/actuation 2 puffs inhalation Q6H PRN fluticasone propion-salmeterol 500-50 mcg/dose 1 inh inhalation Q12H montelukast 10 mg PO DAILY ondansetron 8 mg PO Q8H sertraline 100 mg PO DAILY trazodone 50 mg PO BEDTIME PRN Tobacco use date assessed: 06/04/24 Dental Screening Dental Screen Date: 06/04/24 HPI disability paperwork visit, Lisa Li HPI Details 44 year old lady with depression and anx iety, here today for follow-up and needs FMLA completed , as she still is unable to go back to work, requesting an extension of her leave from work. She is currently on sertraline 100 mg once a day and takes trazodone at night which affords only temporary relief. Still having difficulty with concentration keeping her focust at task. [facility] Medical History Diarrhea Anxiety and depression Asthmatic bronchitis Family history of colon cancer Mild intermittent asthma Surgical History H/O wisdom tooth extraction Family History Father Substance use disorder Maternal Aunt Mental health disorder Maternal Grandmother Colon cancer Social History Housing: House Alcohol intake: never Patient Tobacco Use Status: Former Tobacco user Years Smoked: 13 yrs e-Cigarette/Vaping Use: Never Used Second Hand Smoke Exposure: Yes service: No Current occupational status: previously employed Cognitive needs: No Hearing needs: No Vision needs: No Questionnaire PHQ-9 Over the last 2 weeks, how often have you been bothered by any of the following problems? 1. Little interest or pleasure in doing things: nearly every day 2. Feeling down, depressed, or hopeless: more than half the days 3. Trouble falling or staying asleep, or sleeping too much: nearly every day 4. Feeling tired or having little energy: more than half the days 5. Poor appetite or overeating: several days 6. Feeling bad about yourself - or that you are a failure or have let yourself or your family down: not at all 7. Trouble concentrating on things, such as reading the newspaper or watching television: not at all 8. Moving or speaking so slowly that other people could have noticed. Or the opposite - being so fidgety or restless that you have been moving around a lot more than usual: several days 9. Thoughts that you would be better off or of hurting yourself in some way: not at all Total score: 12 Depression Screening Interpretation: Positive Depression Screening Follow-up: Existing condition, In treatment and Community Mental Health Worker F/U Depression Screening Done: Yes 49014 - PHQ-9 Billing: Yes Source: Developed by Drs. Harley Montanez, Shannon Yancey, Je Pierre and colleagues, with an educational markie from [employer]. Thrive Questionnaire Date Thrive assessed: 09/12/24 I am a: Patient What is your living situation today?: I have a steady place to live Within the past 12 months, did the food you bought not last and you didn't have the money to get more?: Never true Within the past 12 months, did you worry whether your food would run out before you got money to buy more?: Never true Do you have trouble paying for medicines?: No Do you have trouble getting transportation to medical appointments?: No Do you have trouble paying your heating and electricity bill?: I choose not to answer this question Do you have trouble taking care of your child, family member or friend?: No Do you have trouble with day-to-day activities such as bathing, preparing meals, shopping, managing finances, etc.?: I choose not to answer this question Are you interested in more education?: I choose not to answer this question Please select the resources that you would like help with: None Currently or been in a relationship where the following occur: No concerns reported THRIVE Score: 0 AUDIT C Alcohol Use Questionnaire (AUDIT-C) 1. How often do you have a drink containing alcohol?: Monthly or less 3. How often do you have six or more drinks on one occasion?: Never Total Score: 1 JAMES-7 AMB Questionnaire JAMES-7 Date JAMES - 7 assessed: 06/22/24 Feeling nervous, anxious, or on edge: 3 = Nearly every day Not being able to stop or control worryin = Nearly every day Worrying too much about different things: 3 = Nearly every day Trouble relaxin = Nearly every day Being so restless that it is hard to sit still: 3 = Nearly every day Becoming easily annoyed or irritable: 2 = More than half the days Feeling afraid as if something awful might happen: 2 = More than half the days Total JAMES-7 score (0-4 normal; 5-9 mild; 10-14 moderate; 15-21 severe): 19 Source: Developed by Drs. Harley Montanez, Shannon Yancey, Je Pierre and colleagues, with an educational markie from [employer]. JAMES-7 Assessment Billing JAMES-7 Assessment Tool: JAMES-7 Assessment 77150 Review of Systems Const All systems reviewed & are unremarkable except as noted in HPI and below Physical exam (Primary Care) Vital Signs: Last Vital Signs Pulse 80 09/12/24 13:25 BP 126/60 09/12/24 13:25 Pulse Ox 97 09/12/24 13:25 Oxygen Delivery Method Room Air 09/12/24 13:25 BMI result Body Mass Index 20.6 Tobacco/Smoking Status: Tobacco use Status Tobacco use date assessed 06/04/24 09/12/24 13:35 Patient Tobacco Use Status Former Tobacco user 09/12/24 13:35 e-Cigarette/Vaping Use Never Used 09/12/24 13:35 PHQ-9: PHQ-9 Score PHQ-9: Total score 12 09/12/24 13:54 Depression Screening Interpretation: Positive Depression Screening Follow-up: Existing condition, In treatment and Community Mental Health Worker F/U Thrive Assessment: Date of Thrive Assessment Date Thrive assessed 09/12/24 09/12/24 13:35 Currently or been in a relationship where the following occur: No concerns reported Const Other: Alert oriented x3, no acute distress noted ambulatory normal Orientation/consciousness: patient oriented x3 HENMT Face and sinus: Yes face symmetric Mouth: Normal oral and palatal mucosa present, oropharynx normal and moist mucous membranes Neck Other: Supple with no lymphadenopathy thyroid gland nonpalpable Resp Auscultation: clear to auscultation bilaterally Cardio Other: S1-S2 present regular rate and rhythm GI Palpation (GI): Soft to palpation, nontender, no guarding and no masses Auscultation: normal bowel sounds Neuro General: patient oriented x3, tone normal, moves all extremities, Normal light touch and pain sensation and no focal motor deficits Psych Appearance: grossly normal and well kempt Mental Status: mental status grossly normal Speech and movement: Normal speech and movement present Affect: Sad affect present Thought process: Normal thought process present Thought content: Normal thought content present Coding Level of Care Code Est Pt Level 3 (55112) Diagnoses Anxiety and depression F41.9; F32.A Additional Codes JAMES-7 Assessment Billing - JAMES-7 Assessment Tool: JAMES-7 Assessment 35432 ([id number]) Assessment & Plan Assessment & Plan (1) Anxiety and depression: Code(s): F41.9 - Anxiety disorder, unspecified; F32.A - Depression, unspecified Category: Medical Plan: Continue with sertraline and may increase trazodone to 75 mg or up to 100 mg at bedtime, to take as needed for insomnia. Obtain psychiatric consult with Ynes Hidalgo for further evaluation and management. New FMLA form completed and given back to patient Orders: Referrals Psychiatry Referral F32.A - Depression, unspecified, F41.9 - Anxiety disorder, unspecified
[2024-09-12 13:25] VITALS: BP 126/60; PULSE 80; O2SAT 97; BMI 20.6
== END 2024-09-12 14:06 | disposition home or self-care (01) ==
PROVIDERS: PCP Internal Medicine; Visit Provider Internal Medicine
DX: F41.9 Anxiety disorder, unspecified (principal); F32.A Depression, unspecified

== ENCOUNTER → 2024-09-12 13:14 | Outpatient (BNVA) | payer OTHER, SELFPAY | PROVIDERS: PCP Internal Medicine; Visit Provider Internal Medicine | DX: F41.9 Anxiety disorder, unspecified (principal); F32.A Depression, unspecified; Z79.899 Other long term (current) drug therapy | CPT/HCPCS: 96127 ==

== ENCOUNTER 2024-10-08 11:34 | Outpatient (REF) | payer OTHER, SELFPAY ==
[2024-10-08 14:30] LABS: Influenza A PCR NEGATIVE (Negative); Influenza B PCR NEGATIVE (Negative); Resp Syncy Virus RNA Qual PCR NEGATIVE (Negative); SARS COV2 PCR INHOUSE NEGATIVE (Negative)
== END 2024-10-08 11:35 | disposition home or self-care (01) ==
LOC: HO.LAB 11:34
PROVIDERS: Physician Assistant; PCP Internal Medicine
DX: J06.9 Acute upper respiratory infection, unspecified (principal)
CPT/HCPCS: 0241U

== ENCOUNTER 2024-10-08 11:34 | Outpatient (AMB) | payer OTHER, SELFPAY ==
[2024-10-08 11:40] VITALS: BP 108/60; PULSE 68; TEMP 37; O2SAT 97; BMI 20.4
--- NOTE | 2024-10-08 11:40 | AM.OFFWIN_ITS ---
Intake Vital Signs 10/08/24 11:40 Height 5 ft 4 in Weight 119 lb BMI 20.4 BP 108/60 Blood Pressure Location Lt brachial Position Sitting Pulse 68 Pulse Source Pulse Oximeter Temp 98.6 F Temp Source Oral Pulse Oximetry (%) 97 Oxygen Delivery Method Room Air Intake Visit Reasons: EP-cough, thigh chest Intake Note: Patient here for cough, chest tightness which started about 2 weeks ago. Patient Tobacco Use Status: Former Tobacco user Allergies sulfamethoxazole [From Bactrim] Adverse Reaction (Verified 10/08/24 11:48) Hives Do you need a note to return to daycare/school/sports/work: No HPI HPI Comments History of Present Illness Details Patient is a 44-year-old female with a past medical history of asthma complaining of 2 weeks of a productive cough with yellow sputum, headaches, ear pain, shortness of breath and wheezing. She denies any head congestion, sinus pain or fevers or chest pain. She states she is able to eat and drink normally. She did not test for COVID at home. She has not tried taking any [id number] medications to make herself feel better. She tells me she is taking her montelukast and Advair daily. 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 [facility] Medical History Diarrhea Anxiety and depression Asthmatic bronchitis Family history of colon cancer Mild intermittent asthma Surgical History H/O wisdom tooth extraction Family History Father Substance use disorder Maternal Aunt Mental health disorder Maternal Grandmother Colon cancer Social History Housing: House Alcohol intake: never Patient Tobacco Use Status: Former Tobacco user Years Smoked: 13 yrs e-Cigarette/Vaping Use: Never Used Second Hand Smoke Exposure: Yes service: No Current occupational status: previously employed Cognitive needs: No Hearing needs: No Vision needs: No Review of Systems Const All systems reviewed & are unremarkable except as noted in HPI and below Physical Exam Vital Signs: Last Vital Signs Temp 98.6 F 10/08/24 11:40 Pulse 68 10/08/24 11:40 BP 108/60 10/08/24 11:40 Pulse Ox 97 10/08/24 11:40 Oxygen Delivery Method Room Air 10/08/24 11:40 BMI result Body Mass Index 20.4 Const General: cooperative, healthy appearing, comfortable and no acute distress Orientation/consciousness: patient oriented x3 Limitations: no limitations HEENT Head: Yes normal to inspection Ears: hearing grossly normal bilaterally, external ears normal and TM's normal bilaterally General nose exam: Normal external nose present, Normal nares present and No nasal discharge present Face and sinus: Yes normal facial exam and Yes sinuses nontender Mouth: Normal oral and palatal mucosa present and moist mucous membranes Throat: Yes tonsils normal, Yes uvula midline and Yes posterior oropharynx abnormal (Erythema) Eyes General: appearance normal, both eyes and all related structures Neck Neck: Yes normal visual inspection Resp Effort & Inspection: normal respiratory effort, able to speak in complete sentences, Actively coughing, no respiratory distress, not tachypneic, no tripod positioning and no use of accessory muscles Auscultation: clear to auscultation bilaterally and wheezes expiratory wheezes (upper right side) Cardio Rate: regular rate Rhythm: regular rhythm Heart sounds: normal S1 and S2 Skin General skin exam: no rashes or lesions noted Neuro General: patient oriented x3 Extrem General: Yes normal to inspection and Yes no clubbing, cyanosis or edema Assessment & Plan Assessment & Plan (1) URI (upper respiratory infection): Code(s): J06.9 - Acute upper respiratory infection, unspecified Qualifiers: URI type: unspecified URI Qualified Code(s): J06.9 - Acute upper respiratory infection, unspecified Plan: Vital signs are stable, patient well-appearing, slight expiratory wheeze in the right upper lobe. With her history of asthma and 2 weeks of a cough, I will get a chest x-ray. Also sent flu COVID and RSV testing. If chest x-ray is negative for a lobar pneumonia, I will send a Z-Mark with her close contact recently having walking pneumonia. Plan see above Orders: Orders SARS-CoV2/FLU/RSV Today J06.9 - Acute upper respiratory infection, unspecified XR chest 2V Today R05.9 - Cough, unspecified Coding Level of Care Code Est Pt Level 4 (53179) Diagnoses Upper respiratory tract infection, unspecified type J06.9 URI type: unspecified URI
== END 2024-10-08 12:32 | disposition home or self-care (01) ==
PROVIDERS: PCP Internal Medicine; Visit Provider Physician Assistant
DX: J06.9 Acute upper respiratory infection, unspecified (principal)

== ENCOUNTER 2024-10-08 12:01 | Outpatient (REF) | payer OTHER, SELFPAY ==
--- NOTE | ~2024-10-08 | XR_ITS ---
EXAMINATION: XR CHEST CLINICAL INFORMATION: Cough. COMPARISON: None available. TECHNIQUE: 2 views of the chest were obtained. FINDINGS: Normal appearance of the cardiomediastinal silhouette. Mild asymmetric haziness overlying the medial right lower lung field. No dense consolidation, pleural effusion or pneumothorax. No acute osseous findings. XR/XR chest 2V IMPRESSION: Mild asymmetric haziness overlying the medial right lower lung field without correlate on the lateral view most likely representing summation artifacts. No dense consolidation, pleural effusion or pulmonary edema. Electronically signed by: Katie Baez MD 10/08/2024 03:36 PM EST
== END 2024-10-08 12:02 | disposition home or self-care (01) ==
LOC: HO.HMGCX 12:01
PROVIDERS: PCP Internal Medicine; Visit Provider Physician Assistant
DX: R05.9 Cough, unspecified (principal)
CPT/HCPCS: 71046